=== PATIENT | female | born 1940 | race African-American/Black ===

== ENCOUNTER 2018-04-30 17:21 | Inpatient (IN) ==
[2018-04-30 18:59] LABS: Basophils % 0.3 % (0.0-0.8); Eosinophils # 0.1 10*3/uL (0.0-0.87); Eosinophils % 1.6 % (0.00-10.9); Hematocrit 38.7 VOL% (35.7-47.0); Hemoglobin 13.4 GM/DL (12.0-16.0); Immature Granulocytes % 0.6 %; Immature Granulocytes Absolute 0.04 #; Lymphocytes # 0.9 10*3/uL (1.4-4.0); Lymphocytes % 13.5 % (21.3-54.2); Mean Corpuscular HGB Conc 34.6 GM/DL (32-36); Mean Corpuscular Hemoglobin 35 PG (27-34); Mean Corpuscular Volume 100.3 FL (87-102); Mean Platelet Volume 10.8 FL (9.6-12.0); Monocytes # 0.8 10*3/uL (0.11-0.8); Monocytes % 11.9 % (1.7-12.7); Neutrophils # 4.6 10*3/uL (1.4-7.4); Neutrophils % 72.1 % (38.7-73.9); Platelet Count 165 T/CUMM (130-400); Red Blood Count 3.86 MC/CUMM (3.8-5.5); Red Cell Distribution Width 17.4 % (9.3-17.3); White Blood Count 6.4 T/CUMM (4-12)
[2018-04-30 19:06] LABS: INR 1.1; PT Patient Result 11.8 SECS
[2018-04-30 19:19] LABS: Alanine Aminotransferase 34 U/L (13-56); Albumin 3.6 G/DL (3.4-5.0); Alkaline Phosphatase 137 U/L (45-117); Aspartate Amino Transferase 27 U/L (0-37); Bilirubin,Total < 0.39 MG/DL (0.2-1.0); Blood Urea Nitrogen 33 MG/DL (7-18); Calcium 9.5 MG/DL (8.5-10.1); Glucose 121 MG/DL (74-106); Osmolality,Calculated 284.5 MOS/KG (273-304); Potassium 4.1 MMOL/L (3.5-5.1); Sodium 139 MMOL/L (136-145); Total Protein 8.3 G/DL (6.4-8.3)
[2018-04-30 20:43] LABS: Ammonia 25 UMOL/L (11-32)
[2018-04-30] MEDS ORDERED: LABETALOL 20 MG/4 ML SYRINGE IV STA (20:45)
[2018-04-30] MEDS ORDERED: LABETALOL 100 MG/20 ML VIAL IV ONE (20:53)
[2018-05-01] MEDS ORDERED: MULTIVITAMIN (CENTRUM) TABLET PO SCH (08:30)
[2018-05-01] MEDS: CALCIUM ACETATE 667 MG CAPSULE PO SCH ×3 (09:07→21:24)
[2018-05-01] MEDS: PHENYTOIN ER 100 MG CAPSULE PO SCH ×3 (09:08→21:24)
[2018-05-01] MEDS: LEVOTHYROXINE 25 MCG TABLET PO SCH (09:08)
[2018-05-01] MEDS: levETIRAcetam 250 MG TABLET PO SCH ×2 (09:08→21:24)
[2018-05-01] MEDS: CILOSTAZOL 50 MG TABLET PO SCH ×2 (09:08→21:24)
[2018-05-01] MEDS: amLODIPine 5 MG TABLET PO SCH (09:08)
[2018-05-01] MEDS ORDERED: CINACALCET 30 MG TABLET PO SCH (17:00)
[2018-05-01] MEDS ORDERED: PRORENAL D PO SCH (19:00)
[2018-05-01] MEDS ORDERED: ATORVASTATIN 40 MG TABLET PO SCH (21:00)
[2018-05-01] MEDS ORDERED: DONEPEZIL 5 MG TABLET PO SCH (21:00)
[2018-05-02 07:50] LABS: Basophils % 0.5 % (0.0-0.8); Eosinophils # 0.2 10*3/uL (0.0-0.87); Eosinophils % 5.3 % (0.00-10.9); Hemoglobin 11.8 GM/DL (12.0-16.0); Immature Granulocytes % 0.5 %; Immature Granulocytes Absolute 0.02 #; Lymphocytes # 1.4 10*3/uL (1.4-4.0); Lymphocytes % 31.6 % (21.3-54.2); Mean Corpuscular HGB Conc 33.7 GM/DL (32-36); Mean Corpuscular Hemoglobin 34 PG (27-34); Mean Corpuscular Volume 101.4 FL (87-102); Mean Platelet Volume 11.1 FL (9.6-12.0); Monocytes # 0.6 10*3/uL (0.11-0.8); Monocytes % 13.2 % (1.7-12.7); Neutrophils # 2.1 10*3/uL (1.4-7.4); Neutrophils % 48.9 % (38.7-73.9); Platelet Count 139 T/CUMM (130-400); Red Blood Count 3.45 MC/CUMM (3.8-5.5); Red Cell Distribution Width 16.9 % (9.3-17.3); White Blood Count 4.3 T/CUMM (4-12)
[2018-05-02 08:05] LABS: Calcium 8.1 MG/DL (8.5-10.1); Osmolality,Calculated 292.5 MOS/KG (273-304); Potassium 4.7 MMOL/L (3.5-5.1)
[2018-05-02] MEDS: amLODIPine 5 MG TABLET PO SCH (12:22)
[2018-05-02] MEDS: LEVOTHYROXINE 25 MCG TABLET PO SCH (12:23)
[2018-05-02] MEDS: levETIRAcetam 250 MG TABLET PO SCH (12:23)
[2018-05-02] MEDS: CALCIUM ACETATE 667 MG CAPSULE PO SCH (12:23)
[2018-05-02] MEDS: PHENYTOIN ER 100 MG CAPSULE PO SCH ×2 (12:23→13:59)
[2018-05-02] MEDS: CILOSTAZOL 50 MG TABLET PO SCH (12:23)
[2018-05-02 12:41] VITALS: BP 139/76
== END 2018-05-02 15:00 | disposition home or self-care (01) | DRG 876 ==
LOC: EDUNIT# → EDBD → N.ED 17:21 → N.EDINP 22:49 → N.TELEN 05-01 00:47
PROVIDERS: ADMIT Internal Medicine; ATTEND Internal Medicine

== ENCOUNTER 2019-03-15 18:08 | Inpatient (IN) ==
[2019-03-15] MEDS ORDERED: LOPERAMIDE 2 MG CAPSULE PO STA (18:26)
[2019-03-15] MEDS ORDERED: metroNIDAZOLE INJ 500 MG in PREMIX 1 EACH IV STA (18:26)
[2019-03-15] MEDS ORDERED: DICYCLOMINE 20 MG/2 ML AMP IM ONE (18:26)
[2019-03-15] MEDS ORDERED: SODIUM CHLORIDE 0.9% 1,000 ML IV STA (18:26)
[2019-03-15] MEDS ORDERED: ONDANSETRON 4 MG/2 ML VIAL IV STA (18:26)
[2019-03-15 19:43] LABS: Basophils % 0.3 % (0.0-0.8); Eosinophils % 1.4 % (0.00-10.9); Hematocrit 41.2 VOL% (35.7-47.0); Hemoglobin 13.4 GM/DL (12.0-16.0); Immature Granulocytes % 0.3 %; Immature Granulocytes Absolute 0.01 #; Lymphocytes # 0.7 10*3/uL (1.4-4.0); Lymphocytes % 23.6 % (21.3-54.2); Mean Corpuscular HGB Conc 32.5 GM/DL (32-36); Mean Corpuscular Hemoglobin 35 PG (27-34); Mean Corpuscular Volume 106.2 FL (87-102); Mean Platelet Volume 12.1 FL (9.6-12.0); Monocytes # 0.5 10*3/uL (0.11-0.8); Monocytes % 15.8 % (1.7-12.7); Neutrophils # 1.7 10*3/uL (1.4-7.4); Neutrophils % 58.6 % (38.7-73.9); Platelet Count 124 T/CUMM (130-400); Red Blood Count 3.88 MC/CUMM (3.8-5.5); Red Cell Distribution Width 17.2 % (9.3-17.3); White Blood Count 2.9 T/CUMM (4-12)
[2019-03-15 20:00] LABS: Alanine Aminotransferase 47 U/L (13-56); Albumin 3.7 G/DL (3.4-5.0); Alkaline Phosphatase 151 U/L (45-117); Amylase 292 U/L (25-115); Aspartate Amino Transferase 44 U/L (0-37); Blood Urea Nitrogen 66 MG/DL (7-18); Calcium 9.1 MG/DL (8.5-10.1); Glucose 86 MG/DL (74-106); Osmolality,Calculated 298.3 MOS/KG (273-304); Potassium 4.7 MMOL/L (3.5-5.1); Sodium 141 MMOL/L (136-145); Total Protein 7.3 G/DL (6.4-8.3); Troponin I 0.045 NG/ML (0.00-0.045)
[2019-03-15 20:32] LABS: Band Neutrophils 7 % (0-10); Eosinophils 3 % (0-10); Lymphocytes 20 % (20-55); Segmented Neutrophils 57 % (50-85)
[2019-03-15 20:33] LABS: Platelet Estimate Decreased
[2019-03-15 20:34] LABS: Anisocytosis 1+; Poikilocytosis Slight; Polychromasia Slight
[2019-03-15 20:35] LABS: Total Cells Counted 100
[2019-03-15] MEDS ORDERED: ONDANSETRON 4 MG/2 ML VIAL IV PRN (21:38)
[2019-03-15] MEDS ORDERED: ACETAMINOPHEN 325 MG TABLET PO PRN (21:38)
[2019-03-15] MEDS ORDERED: hydrALAZINE 20 MG/1 ML VIAL ONE (22:16)
[2019-03-15] MEDS ORDERED: hydrALAZINE 20 MG/1 ML VIAL IV STA (22:22)
[2019-03-16] MEDS: LEVOTHYROXINE 25 MCG TABLET PO SCH (06:02)
[2019-03-16] MEDS ORDERED: amLODIPine 10 MG TABLET PO SCH (09:00)
[2019-03-16] MEDS ORDERED: CALCIUM (CARBONATE)/VITAMIN D 600 MG-400 UNIT TABLET PO SCH (09:00)
[2019-03-16] MEDS ORDERED: NON-FORMULARY MEDICATION (Potassium [Potassium] 99 MG) PO SCH (09:00)
[2019-03-16] MEDS ORDERED: CLOPIDOGREL 75 MG TABLET PO SCH (09:00)
[2019-03-16] MEDS ORDERED: CALCIUM ACETATE 667 MG CAPSULE PO SCH (09:00)
[2019-03-16] MEDS ORDERED: NON-FORMULARY MEDICATION (Levetiracetam [Keppra] 750 MG) PO SCH (09:00)
[2019-03-16] MEDS: CILOSTAZOL 50 MG TABLET PO SCH ×2 (09:34→20:59)
[2019-03-16] MEDS: PANTOPRAZOLE 40 MG TABLET PO SCH (09:34)
[2019-03-16] MEDS: PHENYTOIN ER 100 MG CAPSULE PO SCH ×3 (09:34→20:59)
[2019-03-16] MEDS: CLOPIDOGREL 75 MG TABLET PO SCH (09:34)
[2019-03-16] MEDS: levETIRAcetam 500 MG TABLET PO SCH ×2 (09:34→20:59)
[2019-03-16] MEDS: SEVELAMER CARBONATE 800 MG TABLET PO SCH ×3 (09:34→16:48)
[2019-03-16] MEDS: ASPIRIN EC 81 MG TABLET PO SCH (09:40)
[2019-03-16] MEDS: MEGESTROL 40 MG TABLET PO SCH (09:40)
[2019-03-16 15:15] LABS: Bilirubin,Total 0.4 MG/DL (0.2-1.0); Calcium 9.1 MG/DL (8.5-10.1); Free T4 (Free Thyroxine) 1.28 NG/DL (0.76-1.46); Osmolality,Calculated 280.1 MOS/KG (273-304); Potassium 4.2 MMOL/L (3.5-5.1)
[2019-03-16] MEDS ORDERED: MULTIVITAMIN (BEROCCA) TABLET PO SCH (19:00)
[2019-03-16] MEDS: CARVEDILOL 6.25 MG TABLET PO SCH (20:59)
[2019-03-16] MEDS: ATORVASTATIN 80 MG TABLET PO SCH (20:59)
[2019-03-17 05:51] LABS: Basophils % 0.4 % (0.0-0.8); Eosinophils # 0.1 10*3/uL (0.0-0.87); Eosinophils % 4.8 % (0.00-10.9); Hematocrit 36.5 VOL% (35.7-47.0); Hemoglobin 11.8 GM/DL (12.0-16.0); Immature Granulocytes % 0.4 %; Immature Granulocytes Absolute 0.01 #; Lymphocytes # 0.8 10*3/uL (1.4-4.0); Lymphocytes % 33.5 % (21.3-54.2); Mean Corpuscular HGB Conc 32.3 GM/DL (32-36); Mean Corpuscular Hemoglobin 34 PG (27-34); Mean Corpuscular Volume 104.9 FL (87-102); Mean Platelet Volume 11.9 FL (9.6-12.0); Monocytes # 0.5 10*3/uL (0.11-0.8); Monocytes % 19.6 % (1.7-12.7); Neutrophils % 41.3 % (38.7-73.9); Platelet Count 134 T/CUMM (130-400); Red Blood Count 3.48 MC/CUMM (3.8-5.5); White Blood Count 2.3 T/CUMM (4-12)
[2019-03-17 06:09] LABS: Calcium 8.3 MG/DL (8.5-10.1); Osmolality,Calculated 287.7 MOS/KG (273-304); Potassium 4.2 MMOL/L (3.5-5.1)
[2019-03-17 06:19] LABS: Eosinophils 3 % (0-10); Lymphocytes 36 % (20-55); Nucleated Red Blood Cells 2 (0-5); Platelet Estimate Normal; Segmented Neutrophils 46 % (50-85); Total Cells Counted 100
[2019-03-17 06:20] LABS: Atypical Lymphocytes Few; Hypochromasia 1+; Ovalocytes Slight
[2019-03-17] MEDS: LEVOTHYROXINE 25 MCG TABLET PO SCH (06:22)
[2019-03-17] MEDS ORDERED: VANCOMYCIN INJ 1,000 MG in SODIUM CHLORIDE 0.9% 250 ML IV ONE (09:00)
[2019-03-17] MEDS: levETIRAcetam 500 MG TABLET PO SCH ×2 (09:17→21:55)
[2019-03-17] MEDS: amLODIPine 5 MG TABLET PO SCH (09:17)
[2019-03-17] MEDS: PHENYTOIN ER 100 MG CAPSULE PO SCH ×3 (09:17→21:55)
[2019-03-17] MEDS: SEVELAMER CARBONATE 800 MG TABLET PO SCH ×3 (09:18→16:54)
[2019-03-17] MEDS: ASPIRIN EC 81 MG TABLET PO SCH (09:18)
[2019-03-17] MEDS: CILOSTAZOL 50 MG TABLET PO SCH ×2 (09:18→21:55)
[2019-03-17] MEDS: MEGESTROL 40 MG TABLET PO SCH (09:18)
[2019-03-17] MEDS: CLOPIDOGREL 75 MG TABLET PO SCH (09:18)
[2019-03-17] MEDS: CARVEDILOL 6.25 MG TABLET PO SCH (09:18)
[2019-03-17] MEDS: PANTOPRAZOLE 40 MG TABLET PO SCH (09:18)
[2019-03-17] MEDS ORDERED: VANCOMYCIN INJ 500 MG in SODIUM CHLORIDE 0.9% 100 ML IV PRN (13:28)
[2019-03-17] MEDS: ATORVASTATIN 80 MG TABLET PO SCH (21:55)
[2019-03-17] MEDS: MULTIVITAMIN (BEROCCA) TABLET PO SCH (21:56)
[2019-03-17] MEDS: CARVEDILOL 12.5 MG TABLET PO SCH (21:56)
[2019-03-18] MEDS: LEVOTHYROXINE 25 MCG TABLET PO SCH (06:44)
[2019-03-18] MEDS: SEVELAMER CARBONATE 800 MG TABLET PO SCH ×3 (09:53→17:11)
[2019-03-18] MEDS: PHENYTOIN ER 100 MG CAPSULE PO SCH ×4 (13:15→21:05)
[2019-03-18] MEDS: CILOSTAZOL 50 MG TABLET PO SCH ×2 (13:29→21:09)
[2019-03-18] MEDS: levETIRAcetam 500 MG TABLET PO SCH ×2 (13:29→21:09)
[2019-03-18] MEDS: amLODIPine 5 MG TABLET PO SCH (13:29)
[2019-03-18] MEDS: PANTOPRAZOLE 40 MG TABLET PO SCH (13:30)
[2019-03-18] MEDS: CARVEDILOL 12.5 MG TABLET PO SCH ×2 (13:30→21:05)
[2019-03-18] MEDS: MEGESTROL 40 MG TABLET PO SCH (13:30)
[2019-03-18] MEDS: CLOPIDOGREL 75 MG TABLET PO SCH (13:31)
[2019-03-18] MEDS: ASPIRIN EC 81 MG TABLET PO SCH (13:31)
[2019-03-18] MEDS ORDERED: VANCOMYCIN INJ 500 MG in SODIUM CHLORIDE 0.9% 100 ML IV ONE (17:00)
[2019-03-18] MEDS: MULTIVITAMIN (BEROCCA) TABLET PO SCH (21:05)
[2019-03-18] MEDS: ATORVASTATIN 80 MG TABLET PO SCH (21:05)
[2019-03-19] MEDS: LEVOTHYROXINE 25 MCG TABLET PO SCH (07:07)
[2019-03-19] MEDS: amLODIPine 5 MG TABLET PO SCH (08:30)
[2019-03-19] MEDS: CARVEDILOL 12.5 MG TABLET PO SCH (08:30)
[2019-03-19] MEDS: ASPIRIN EC 81 MG TABLET PO SCH (08:30)
[2019-03-19] MEDS: PHENYTOIN ER 100 MG CAPSULE PO SCH (08:30)
[2019-03-19] MEDS: MEGESTROL 40 MG TABLET PO SCH (08:30)
[2019-03-19] MEDS: SEVELAMER CARBONATE 800 MG TABLET PO SCH ×2 (08:30→11:50)
[2019-03-19] MEDS: CLOPIDOGREL 75 MG TABLET PO SCH (08:30)
[2019-03-19] MEDS: PANTOPRAZOLE 40 MG TABLET PO SCH (08:30)
[2019-03-19] MEDS: CILOSTAZOL 50 MG TABLET PO SCH (08:30)
[2019-03-19] MEDS: levETIRAcetam 500 MG TABLET PO SCH (08:32)
[2019-03-19] MEDS ORDERED: TUBERCULIN SKIN TEST 0.1 ML SYRINGE INTRADERM ONE (10:23)
[2019-03-19 11:00] VITALS: BP 134/66
== END 2019-03-19 15:25 | DRG 947 ==
LOC: EDUNIT# → EDBD → N.ED 18:08 → N.EDINP 21:37 → N.5E 23:24 → N.CC 03-16 14:35 → N.5E 03-17 15:09
PROVIDERS: ADMIT Internal Medicine; ATTEND Internal Medicine

== ENCOUNTER 2019-07-03 13:24 | Inpatient (IN) ==
[2019-07-03 14:32] LABS: Basophils % 0.6 % (0.0-0.8); Eosinophils % 1.2 % (0.00-10.9); Hematocrit 52.3 VOL% (35.7-47.0); Hemoglobin 17.3 GM/DL (12.0-16.0); Immature Granulocytes % 0.9 %; Immature Granulocytes Absolute 0.03 #; Lymphocytes # 0.9 10*3/uL (1.4-4.0); Lymphocytes % 25.9 % (21.3-54.2); Mean Corpuscular HGB Conc 33.1 GM/DL (32-36); Mean Corpuscular Volume 105.4 FL (87-102); Mean Platelet Volume 11.7 FL (9.6-12.0); Monocytes % 27.1 % (1.7-12.7); Neutrophils % 44.3 % (38.7-73.9); Platelet Count 103 T/CUMM (130-400); Red Blood Count 4.96 MC/CUMM (3.8-5.5); White Blood Count 3.4 T/CUMM (4-12)
[2019-07-03 14:53] LABS: Bilirubin,Total 0.6 MG/DL (0.2-1.0); Osmolality,Calculated 280.8 MOS/KG (273-304); Total Protein 9.2 G/DL (6.4-8.3)
[2019-07-03] MEDS ORDERED: VANCOMYCIN (NICU) 1,000 MG in SYRINGE 1 EACH IV STA (15:18)
[2019-07-03] MEDS ORDERED: VANCOMYCIN 1,000 MG VIAL ONE (15:29)
[2019-07-03] MEDS ORDERED: VANCOMYCIN INJ 1,000 MG in SODIUM CHLORIDE 0.9% 250 ML IV STA (15:29)
[2019-07-03] MEDS ORDERED: ONDANSETRON 4 MG/2 ML VIAL IV PRN (15:44)
[2019-07-03] MEDS ORDERED: ACETAMINOPHEN 325 MG TABLET PO PRN (15:44)
[2019-07-03 16:11] LABS: Lymphocytes 23 % (20-55); Segmented Neutrophils 62 % (50-85); Total Cells Counted 100
[2019-07-03 16:12] LABS: Macrocytosis 3+; Platelet Estimate Adequate
[2019-07-03] MEDS ORDERED: ACETAMINOPHEN 500 MG TABLET PO PRN (17:05)
[2019-07-03] MEDS ORDERED: MAGNESIUM HYDROXIDE SUSP 30 ML UDCUP PO PRN (17:05)
[2019-07-03] MEDS: levETIRAcetam 500 MG TABLET PO SCH (18:20)
[2019-07-03] MEDS: DOCUSATE SODIUM 100 MG CAPSULE PO SCH (21:24)
[2019-07-03] MEDS: DONEPEZIL 10 MG TABLET PO SCH (21:24)
[2019-07-03] MEDS: ATORVASTATIN 80 MG TABLET PO SCH (21:24)
[2019-07-03] MEDS: PHENYTOIN ER 100 MG CAPSULE PO SCH (21:24)
[2019-07-03] MEDS: MULTIVITAMIN (BEROCCA) TABLET PO SCH (21:24)
[2019-07-04] MEDS: levETIRAcetam 500 MG TABLET PO SCH ×2 (05:04→17:19)
[2019-07-04 05:25] LABS: Basophils % 0.7 % (0.0-0.8); Eosinophils # 0.1 10*3/uL (0.0-0.87); Eosinophils % 2.3 % (0.00-10.9); Hematocrit 45.5 VOL% (35.7-47.0); Hemoglobin 14.4 GM/DL (12.0-16.0); Immature Granulocytes % 0.5 %; Immature Granulocytes Absolute 0.02 #; Lymphocytes # 1.3 10*3/uL (1.4-4.0); Mean Corpuscular HGB Conc 31.6 GM/DL (32-36); Mean Corpuscular Volume 106.8 FL (87-102); Mean Platelet Volume 11.6 FL (9.6-12.0); Monocytes % 17.6 % (1.7-12.7); Neutrophils % 49.9 % (38.7-73.9); Platelet Count 118 T/CUMM (130-400); Red Blood Count 4.26 MC/CUMM (3.8-5.5); Red Cell Distribution Width 19.2 % (9.3-17.3); White Blood Count 4.3 T/CUMM (4-12)
[2019-07-04 05:54] LABS: Calcium 9.6 MG/DL (8.5-10.1); Osmolality,Calculated 291.4 MOS/KG (273-304)
[2019-07-04 06:04] LABS: Band Neutrophils 2 % (0-10); Eosinophils 2 % (0-10); Lymphocytes 32 % (20-55); Segmented Neutrophils 49 % (50-85); Total Cells Counted 100
[2019-07-04 06:06] LABS: Anisocytosis 1+; Platelet Estimate Adequate
[2019-07-04] MEDS: LEVOTHYROXINE 25 MCG TABLET PO SCH (09:25)
[2019-07-04] MEDS: PANTOPRAZOLE 40 MG TABLET PO SCH (09:25)
[2019-07-04] MEDS: CALCIUM (CARBONATE)/VITAMIN D 600 MG-400 UNIT TABLET PO SCH (09:26)
[2019-07-04] MEDS: SEVELAMER CARBONATE 800 MG TABLET PO SCH ×3 (09:26→17:19)
[2019-07-04] MEDS: POTASSIUM CHLORIDE 10 MEQ TABLET PO SCH (09:26)
[2019-07-04] MEDS: MEGESTROL 40 MG TABLET PO SCH (09:26)
[2019-07-04] MEDS: amLODIPine 10 MG TABLET PO SCH (09:26)
[2019-07-04] MEDS: PHENYTOIN ER 100 MG CAPSULE PO SCH ×3 (09:26→21:04)
[2019-07-04] MEDS: ASPIRIN EC 81 MG TABLET PO SCH (09:26)
[2019-07-04] MEDS: DOCUSATE SODIUM 100 MG CAPSULE PO SCH ×2 (09:26→21:04)
[2019-07-04] MEDS: ATORVASTATIN 80 MG TABLET PO SCH (21:04)
[2019-07-04] MEDS: MULTIVITAMIN (BEROCCA) TABLET PO SCH (21:04)
[2019-07-04] MEDS: DONEPEZIL 10 MG TABLET PO SCH (21:04)
[2019-07-05] MEDS: levETIRAcetam 500 MG TABLET PO SCH ×2 (05:17→19:08)
[2019-07-05] MEDS: amLODIPine 10 MG TABLET PO SCH (08:31)
[2019-07-05] MEDS: SEVELAMER CARBONATE 800 MG TABLET PO SCH ×3 (08:31→16:34)
[2019-07-05] MEDS: CALCIUM (CARBONATE)/VITAMIN D 600 MG-400 UNIT TABLET PO SCH (08:31)
[2019-07-05] MEDS: POTASSIUM CHLORIDE 10 MEQ TABLET PO SCH (08:31)
[2019-07-05] MEDS: MEGESTROL 40 MG TABLET PO SCH (08:31)
[2019-07-05] MEDS: LEVOTHYROXINE 25 MCG TABLET PO SCH (08:31)
[2019-07-05] MEDS: DOCUSATE SODIUM 100 MG CAPSULE PO SCH ×2 (08:32→22:56)
[2019-07-05] MEDS: PANTOPRAZOLE 40 MG TABLET PO SCH (08:32)
[2019-07-05] MEDS: PHENYTOIN ER 100 MG CAPSULE PO SCH ×3 (08:32→22:56)
[2019-07-05] MEDS: ASPIRIN EC 81 MG TABLET PO SCH (08:32)
[2019-07-05] MEDS ORDERED: VANCOMYCIN INJ 500 MG in SODIUM CHLORIDE 0.9% 100 ML IV PRN (11:59)
[2019-07-05] MEDS ORDERED: TUBERCULIN SKIN TEST 0.1 ML SYRINGE INTRADERM ONE (12:00)
[2019-07-05] MEDS: MULTIVITAMIN (BEROCCA) TABLET PO SCH (22:55)
[2019-07-05] MEDS: DONEPEZIL 10 MG TABLET PO SCH (22:55)
[2019-07-05] MEDS: ATORVASTATIN 80 MG TABLET PO SCH (22:55)
[2019-07-06] MEDS: MEGESTROL 40 MG TABLET PO SCH (08:17)
[2019-07-06] MEDS: LEVOTHYROXINE 25 MCG TABLET PO SCH (08:17)
[2019-07-06] MEDS: CALCIUM (CARBONATE)/VITAMIN D 600 MG-400 UNIT TABLET PO SCH (08:17)
[2019-07-06] MEDS: levETIRAcetam 500 MG TABLET PO SCH (08:17)
[2019-07-06] MEDS: amLODIPine 10 MG TABLET PO SCH (08:17)
[2019-07-06] MEDS: PHENYTOIN ER 100 MG CAPSULE PO SCH (08:17)
[2019-07-06] MEDS: SEVELAMER CARBONATE 800 MG TABLET PO SCH ×2 (08:18→12:07)
[2019-07-06] MEDS: POTASSIUM CHLORIDE 10 MEQ TABLET PO SCH (08:18)
[2019-07-06] MEDS: PANTOPRAZOLE 40 MG TABLET PO SCH (08:18)
[2019-07-06] MEDS: ASPIRIN EC 81 MG TABLET PO SCH (08:18)
[2019-07-06] MEDS: DOCUSATE SODIUM 100 MG CAPSULE PO SCH (08:18)
[2019-07-06 08:49] VITALS: BP 178/72
[2019-07-06] MEDS ORDERED: cloNIDine 0.1 MG TABLET PO PRN (13:12)
[2019-07-06] MEDS ORDERED: cloNIDine 0.1 MG TABLET ONE (13:15)
== END 2019-07-06 15:00 | DRG 947 ==
LOC: EDBD → EDUNIT# → N.ED 13:24 → N.EDINP 15:44 → N.5E 16:41
PROVIDERS: ADMIT Internal Medicine; ATTEND Internal Medicine

== ENCOUNTER 2020-03-24 08:46 | Inpatient (IN) ==
[2020-03-24] MEDS ORDERED: cefTRIAXone 1,000 MG in SODIUM CHLORIDE 0.9% 100 ML IV STA (09:18)
[2020-03-24] MEDS ORDERED: VANCOMYCIN INJ 1,000 MG in SODIUM CHLORIDE 0.9% 250 ML IV ONE ×2 (09:21→09:30)
[2020-03-24 09:39] LABS: Alanine Aminotransferase 51 U/L (13-56); Albumin 3.7 G/DL (3.4-5.0); Alkaline Phosphatase 95 U/L (45-117); Aspartate Amino Transferase 91 U/L (0-37); Blood Urea Nitrogen 50 MG/DL (7-18); Calcium 9.1 MG/DL (8.5-10.1); Estimated Glom Filtration Rate 0 ML/MIN; Glucose 97 MG/DL (74-106); Osmolality,Calculated 282.1 MOS/KG (273-304); Total Protein 8.1 G/DL (6.4-8.3)
[2020-03-24] MEDS ORDERED: SODIUM CHLORIDE 0.9% 250 ML IV STA (10:16)
[2020-03-24] MEDS ORDERED: PHENYTOIN INJ 500 MG in SODIUM CHLORIDE 0.9% 100 ML IV STA (10:17)
[2020-03-24] MEDS ORDERED: PHENYTOIN 250 MG/5 ML VIAL IV ONE (10:21)
[2020-03-24 11:34] LABS: Basophils % 0.1 % (0.0-0.8); Hematocrit 29.2 VOL% (35.7-47.0); Hemoglobin 9.2 GM/DL (12.0-16.0); Immature Granulocytes % 1.4 %; Lymphocytes # 0.6 10*3/uL (1.4-4.0); Lymphocytes % 8.2 % (21.3-54.2); Mean Corpuscular HGB Conc 31.5 GM/DL (32-36); Mean Platelet Volume 11.8 FL (9.6-12.0); Monocytes % 9.5 % (1.7-12.7); Neutrophils % 80.8 % (38.7-73.9); Platelet Count 147 T/CUMM (130-400); Red Blood Count 2.73 MC/CUMM (3.8-5.5); Red Cell Distribution Width 15.9 % (9.3-17.3); White Blood Count 7.1 T/CUMM (4-12)
[2020-03-24] MEDS ORDERED: ONDANSETRON 4 MG/2 ML VIAL IV PRN (12:04)
[2020-03-24] MEDS ORDERED: AZITHROMYCIN INJ 500 MG in SODIUM CHLORIDE 0.9% 250 ML IV SCH (12:30)
[2020-03-24] MEDS ORDERED: cloNIDine 0.1 MG TABLET PO PRN (14:05)
[2020-03-24] MEDS ORDERED: MAGNESIUM HYDROXIDE SUSP 30 ML UDCUP PO PRN (14:05)
[2020-03-24] MEDS: PHENYTOIN ER 100 MG CAPSULE PO SCH ×2 (16:30→20:59)
[2020-03-24] MEDS: SEVELAMER CARBONATE 800 MG TABLET PO SCH (16:30)
[2020-03-24] MEDS ORDERED: [UNRECOGNIZED DRUG - OTHER] PO SCH (17:00)
[2020-03-24] MEDS ORDERED: NUTRITIONAL SUPPLEMENT PO SCH (17:00)
[2020-03-24] MEDS: levETIRAcetam 500 MG TABLET PO SCH (20:58)
[2020-03-24] MEDS: ACETAMINOPHEN 325 MG TABLET PO PRN (20:59)
[2020-03-24] MEDS ORDERED: ATORVASTATIN 80 MG TABLET PO SCH (21:00)
[2020-03-24] MEDS: MEMANTINE 5 MG TABLET PO SCH (21:00)
[2020-03-24] MEDS ORDERED: DONEPEZIL 10 MG TABLET PO SCH (21:00)
[2020-03-24] MEDS ORDERED: MULTIVITAMIN (BEROCCA) TABLET PO SCH (21:00)
[2020-03-24] MEDS ORDERED: ASPIRIN EC 81 MG TABLET PO SCH (21:00)
[2020-03-24] MEDS: HYDROXYCHLOROQUINE 200 MG TABLET PO SCH (21:01)
[2020-03-24] MEDS: METOPROLOL TARTRATE 50 MG TABLET PO SCH (21:01)
[2020-03-24] MEDS: ZINC SULFATE 220 MG CAPSULE PO SCH (21:01)
[2020-03-24] MEDS: ENOXAPARIN 30 MG/0.3 ML SYRINGE SUBCUT SCH (21:02)
[2020-03-25 03:41] LABS: Calcium 8.3 MG/DL (8.5-10.1); Osmolality,Calculated 293.8 MOS/KG (273-304)
[2020-03-25] MEDS ORDERED: SEVELAMER CARBONATE POWDER 2.4 GM PACK PO SCH (08:00)
[2020-03-25] MEDS ORDERED: LEVOTHYROXINE 25 MCG TABLET PO SCH (09:00)
[2020-03-25] MEDS ORDERED: MEGESTROL 40 MG TABLET PO SCH (09:00)
[2020-03-25] MEDS ORDERED: PANTOPRAZOLE 40 MG TABLET PO SCH (09:00)
[2020-03-25] MEDS: cefTRIAXone 1,000 MG in SYRINGE 1 EACH IV SCH (09:05)
[2020-03-25] MEDS: PHENYTOIN ER 100 MG CAPSULE PO SCH (09:24)
[2020-03-25] MEDS: SEVELAMER CARBONATE 800 MG TABLET PO SCH (09:24)
[2020-03-25] MEDS: levETIRAcetam 500 MG TABLET PO SCH (09:25)
[2020-03-25] MEDS: METOPROLOL TARTRATE 50 MG TABLET PO SCH (09:25)
[2020-03-25] MEDS: MEMANTINE 5 MG TABLET PO SCH (09:26)
[2020-03-25] MEDS: HYDROXYCHLOROQUINE 200 MG TABLET PO SCH ×2 (09:26→20:21)
[2020-03-25 12:04] LABS: Basophils % 0.1 % (0.0-0.8); Hematocrit 23.7 VOL% (35.7-47.0); Hemoglobin 7.5 GM/DL (12.0-16.0); Immature Granulocytes % 2.2 %; Immature Granulocytes Absolute 0.18 #; Lymphocytes # 1.4 10*3/uL (1.4-4.0); Lymphocytes % 17.4 % (21.3-54.2); Mean Corpuscular HGB Conc 31.6 GM/DL (32-36); Mean Corpuscular Volume 104.9 FL (87-102); Mean Platelet Volume 12.5 FL (9.6-12.0); NRBC # 0.03 10*3/uL; Neutrophils % 67.3 % (38.7-73.9); Platelet Count 116 T/CUMM (130-400); Red Blood Count 2.26 MC/CUMM (3.8-5.5); Red Cell Distribution Width 15.9 % (9.3-17.3); White Blood Count 8.2 T/CUMM (4-12)
[2020-03-25] MEDS: LIDOCAINE/PRILOCAINE CREAM 5 GM TUBE TOP SCH (12:18)
[2020-03-25] MEDS: METOPROLOL TARTRATE 5 MG/5 ML VIAL IV SCH ×3 (15:01→23:12)
[2020-03-25] MEDS: PHENYTOIN 100 MG/2 ML VIAL IV SCH ×2 (15:18→23:08)
[2020-03-25] MEDS: ENOXAPARIN 30 MG/0.3 ML SYRINGE SUBCUT SCH (20:21)
[2020-03-26 04:00] LABS: ABG Base Excess 1.4 MMOL/L (-2.5-2.5); ABG HCO3 25.6 MMOL/L (20-26); ABG Oxygen Saturation 95.8 % (95-100); ABG PCO2 34.6 MM HG (35-48); ABG PH 7.464 (7.35-7.45); ABG PO2 82.5 MM HG (80-95); ABG TCO2 22.5 MMOL/L (23-27); Allen Test Positive
[2020-03-26] MEDS: LEVOTHYROXINE 100 MCG VIAL IV SCH (06:03)
[2020-03-26] MEDS: PHENYTOIN 100 MG/2 ML VIAL IV SCH ×3 (06:06→23:58)
[2020-03-26] MEDS: METOPROLOL TARTRATE 5 MG/5 ML VIAL IV SCH ×4 (06:10→20:28)
[2020-03-26] MEDS: cefTRIAXone 1,000 MG in SYRINGE 1 EACH IV SCH (10:06)
[2020-03-26] MEDS: HYDROXYCHLOROQUINE 200 MG TABLET PO SCH ×2 (10:06→20:27)
[2020-03-26] MEDS: ZINC SULFATE 220 MG CAPSULE PO SCH (10:06)
[2020-03-26] MEDS: ENOXAPARIN 30 MG/0.3 ML SYRINGE SUBCUT SCH (20:28)
[2020-03-26] MEDS: ACETAMINOPHEN 325 MG TABLET PO PRN (20:45)
[2020-03-27] MEDS: METOPROLOL TARTRATE 5 MG/5 ML VIAL IV SCH ×4 (04:00→21:03)
[2020-03-27] MEDS: PHENYTOIN 100 MG/2 ML VIAL IV SCH ×3 (06:00→22:58)
[2020-03-27] MEDS: LEVOTHYROXINE 100 MCG VIAL IV SCH (06:12)
[2020-03-27] MEDS: HYDROXYCHLOROQUINE 200 MG TABLET PO SCH ×2 (09:12→21:08)
[2020-03-27] MEDS: cefTRIAXone 1,000 MG in SYRINGE 1 EACH IV SCH (09:41)
[2020-03-27] MEDS: ENOXAPARIN 30 MG/0.3 ML SYRINGE SUBCUT SCH (21:03)
[2020-03-28] MEDS: METOPROLOL TARTRATE 5 MG/5 ML VIAL IV SCH ×3 (05:35→16:07)
[2020-03-28] MEDS: PHENYTOIN 100 MG/2 ML VIAL IV SCH ×2 (06:00→18:11)
[2020-03-28] MEDS: LEVOTHYROXINE 100 MCG VIAL IV SCH (06:01)
[2020-03-28] MEDS: cefTRIAXone 1,000 MG in SYRINGE 1 EACH IV SCH (09:15)
[2020-03-28] MEDS: ZINC SULFATE 220 MG CAPSULE PO SCH (09:15)
[2020-03-28] MEDS: HYDROXYCHLOROQUINE 200 MG TABLET PO SCH (09:15)
[2020-03-28 11:02] LABS: Basophils % 0.3 % (0.0-0.8); Eosinophils % 0.3 % (0.00-10.9); Hematocrit 28.6 VOL% (35.7-47.0); Immature Granulocytes % 6.5 %; Immature Granulocytes Absolute 0.42 #; Lymphocytes % 14.7 % (21.3-54.2); Mean Corpuscular HGB Conc 31.5 GM/DL (32-36); Mean Corpuscular Volume 107.5 FL (87-102); Mean Platelet Volume 11.4 FL (9.6-12.0); Monocytes % 8.8 % (1.7-12.7); NRBC # 0.04 10*3/uL; Neutrophils % 69.4 % (38.7-73.9); Platelet Count 215 T/CUMM (130-400); Red Blood Count 2.66 MC/CUMM (3.8-5.5); White Blood Count 6.5 T/CUMM (4-12)
[2020-03-28 11:18] LABS: Osmolality,Calculated 301.8 MOS/KG (273-304)
[2020-03-28 11:20] LABS: Band Neutrophils 5 % (0-10); Eosinophils 1 % (0-10); Hypochromasia 1+; Lymphocytes 17 % (20-55); Ovalocytes Slight; Platelet Estimate Adequate; Segmented Neutrophils 73 % (50-85); Total Cells Counted 100
[2020-03-28] MEDS: LIDOCAINE/PRILOCAINE CREAM 5 GM TUBE TOP SCH (11:45)
[2020-03-28 18:13] VITALS: BP 113/63
== END 2020-03-28 19:25 | disposition expired | DRG 177 ==
LOC: EDUNIT# → N.ED 08:46 → N.EDINP 12:04 → N.2W 14:00
PROVIDERS: ADMIT Internal Medicine; ATTEND Internal Medicine